=== PATIENT | female | born 1990 | race Caucasian/White ===

== ENCOUNTER 2025-03-29 17:16 | Emergency (ER) | payer OTHER, SELFPAY ==
[2025-03-29 17:17] VITALS: BP 110/81
[2025-03-29 18:01] LABS: HCG, Serum Qualitative Screen Negative
[2025-03-29 18:05] LABS: ALT (SGPT) 12 U/L (0-35); AST (SGOT) 16 U/L (14-36); Albumin 4.7 g/dl (3.5-5.0); Alkaline Phosphatase 37 U/L (38-126); Blood Urea Nitrogen 22 mg/dl (7-17); Calcium 9.4 mg/dl (8.4-10.2); Carbon Dioxide 22 mmol/L (22-30); Chloride 107 mmol/L (98-107); Glucose 114 mg/dl (70-99); Lipase 57 U/L (23-300); Potassium 3.5 mmol/L (3.5-5.1); Sodium 140 mmol/L (135-145); Total Bilirubin 1.5 mg/dl (0.2-1.3); Total Protein 7.5 g/dl (6.3-8.2); eGFR > 60.00
[2025-03-29 18:17] LABS: % Basophils 0.3 % (0-2); % Eosinophils 1.7 % (0-6); % Immature Granulocytes 0.5 % (0-0.5); % Lymphocytes 28.7 % (20.5-51.1); % Monocytes 11.9 % (1.7-9.3); % Neutrophils 56.9 % (42.2-75.2); Absolute Eosinophils 0.1 10^3/uL (0-0.7); Absolute Lymphocytes 2.1 10^3/uL (1.2-3.4); Absolute Monocytes 0.9 10^3/uL (0.1-0.6); Absolute Neutrophils 4.2 10^3/uL (1.4-6.5); Hemoglobin 15.5 g/dL (12.0-16.0); Mean Corp Hgb Conc. 38.8 g/dL (33.0-37.0); Mean Corpuscular Hgb 31.6 pg (27.0-31.0); Mean Corpuscular Volume 81.5 fL (81.0-99.0); Mean Platelet Volume 10.1 fL (7.4-10.4); Nucleated Red Blood Cells % 0.4 %; Platelet Count 311 10^3/uL (130-400); Red Blood Cell Count 4.91 10^6/uL (4.20-5.40); Red Cell Dist. Width 11.8 % (11.5-14.5); White Blood Cell Count 7.5 10^3/uL (4.8-10.8)
[2025-03-29] MEDS: NSS 1000 IV (20:10)
[2025-03-29 20:57] LABS: Troponin I 0.012 ng/ml
--- NOTE | 2025-03-29 20:58 | ED.GENMED ---
History of Present Illness
General
Chief Complaint: Abdominal Symptoms
Source: patient
Time Seen by Provider: 03/29/25 20:08
History of Present Illness
History of Present Illness:
Note:
CHIEF COMPLAINT(S)
Diarrhea, vomiting, and dehydration.
HISTORY OF PRESENT ILLNESS
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 The patient presented with a history of gastrointestinal symptoms starting on a Thursday when she felt generally unwell. On Thursday, she experienced diarrhea, which she initially
attributed to having coffee on an empty stomach. That night, she vomited approximately six times, which is atypical for her. She describes the vomiting episode as depleting and has not experienced such intensity before.
By Thursday, the patient believed it might have been a 24-hour viral illness as she felt slightly better; however, she noted that eating provoked intense diarrhea. The diarrhea was frequent enough to cause rectal bleeding, which was apparent only on
wiping. Concern about the bleeding led her to limit food intake, resulting in dehydration. She experienced nausea, light-headedness, shortness of breath, and profound fatigue, necessitating taking an elevator at school rather than stairs, something
she found unusual considering her relatively good health and active lifestyle.
The patient contacted her primary care physician due to worsening symptoms and concern for persistent high heart rate and dehydration. The physician recommended a stool sample, electrocardiogram (EKG), and a computed tomography (CT) scan of the
abdomen. Currently, the patient reports diffuse abdominal tenderness, more pronounced in the lower region, when pressure is applied.
ADDITIONAL HISTORY OBTAINED FROM SOURCES OTHER THAN THE PATIENT
According to the patients physician, there is a concern for dehydration and possible electrolyte imbalance, leading to a slightly elevated heart rate and an abnormal EKG. The provider also mentioned plans to perform a CT scan.
CHRONIC MEDICAL CONDITIONS SIGNIFICANTLY AFFECTING CARE
The patient has been on Zepbound for a year, which she wonders might contribute to her symptoms.
SOCIAL DETERMINANTS AFFECTING HEALTH
The patient is a mother of two small children and notes the demands of parenthood as affecting her ability to rest and recuperate.
ALLERGIES
The patient reports allergies to pain medications and another unidentified medication starting with 'D.'
PAST SURGICAL HISTORY
The patient has a history of a section during childbirth.
SOCIAL HISTORY
The patient does not smoke cigarettes, use tobacco, consume alcohol, or use substances.
REVIEW OF SYSTEMS
- Gastrointestinal: Diarrhea with blood on wiping, vomiting, abdominal tenderness, nausea.
- General: Fatigue, dehydration, light-headedness.
- Cardiovascular: Shortness of breath, elevated heart rate.
Past History
Past History
ED Past Medical History: None
ED Past Surgical History: Tonsilectomy
Social History
Tobacco: Non-smoker
Alcohol: Occasional
Drug: None
Personal:
Living: with family
Employment: Employed
Review of Systems
Review of Systems
All Other Systems: ROS reviewed and negative except as documented in HPI and ROS
Phy Exam
Physical Exam
Physical Exam:
GENERAL: Alert , in no apparent distress
EYE: clear conjunctiva b/l
HEAD: NCAT
ENT: o/p clr, mmm.
CARDIAC: Tachycardic rate, normal rhythm
LUNGS: Clear breath sounds bilaterally, no acute respiratory distress, no wheezes/rales/rhonchi
ABDOMEN: Abdomen is tender, more pronounced in the lower regions but generally soft without rigidity. normoactive bowel sounds
NEUROLOGICAL: Alert and oriented
SKIN: Warm and dry, skin intact.
MUSCULOSKELETAL: No edema, well perfused.
PSYCH: Normal and appropriate interaction.
Scores
Heart Failure Risk
Heart Failure Risk Score: Not Applicable
Heart Score for Chest Pain Patients
STEMI patient?: Not applicable
Withdrawal Assessment of Alcohol
Withdrawal Assessment Completed?: Not applicable
Course
Orders/Labs/Results
Orders:
Orders
03/29/25 17:21
Electrocardiogram (*1) Urgent
Reason for Study: Vertigo / Dizzy
EKG- Treatment ONCE
Test Result ONCE
03/29/25 17:41
Complete Blood Count/With Diff Urgent
Comprehensive Metabolic Panel Urgent
HCG, Serum Qualitative Screen Urgent
Lipase Urgent
03/29/25 19:38
C difficile Antigen & Toxins Urgent
CHITO Source: Feces/Stool
Specimen Description:
Date Specimen was Collected: 03/29/25
Time Specimen was Collected: 19:36
Stool Culture Urgent
CHITO Source: Feces/Stool
Specimen Description:
Date Specimen was Collected: 03/29/25
Time Specimen was Collected: 19:36
03/29/25 20:08
0.9% Sodium Chloride 1000 ml [Nss] 1,000 ml IV BOLUS
03/29/25 20:26
Troponin I Urgent
03/29/25 20:59
CT Abd/pelvis W Iv Cont Urgent
Comment:
Reason For Exam: pain, diarrhea
Abnormal Lab Results
03/29/25
17:41
MCH 31.6 H pg
(27.0-31.0)
MCHC 38.8 H g/dL
(33.0-37.0)
Absolute Monos (auto) 0.9 H 10^3/uL
(0.1-0.6)
Monocytes % 11.9 H %
(1.7-9.3)
BUN 22 H mg/dl
(7-17)
Creatinine 1.1 H mg/dL
(0.6-1.0)
Glucose 114 H mg/dl
(70-99)
Total Bilirubin 1.5 H mg/dl
(0.2-1.3)
Alkaline Phosphatase 37 L U/L
(38-126)
03/29/25 17:41
03/29/25 17:41
Vital Signs
Initial and Last Documented VS:
Initial Vital Signs
Temp Pulse Resp BP Pulse Ox
98.1 F 118 16 110/81 97
03/29/25 17:17 03/29/25 17:17 03/29/25 17:17 03/29/25 17:17 03/29/25 17:17
Last Documented Vital Signs
Temp Pulse Resp BP Pulse Ox
98.1 F 70 20 105/70 99
03/29/25 17:17 03/29/25 22:10 03/29/25 22:10 03/29/25 22:10 03/29/25 22:10
MDM/Problems Addressed
Differential Diagnosis Includes:
The Differential Diagnosis includes, in no particular order and is not limited to:
1. Viral gastroenteritis
2. Bacterial gastroenteritis
3. Inflammatory bowel disease
4. Diverticulitis
5. Gastritis
6. Peptic ulcer disease
7. Irritable bowel syndrome
8. Colitis
9. Rectal fissure
10. Food poisoning
MDM/Problems Addressed:
1. Administer intravenous fluids to address dehydration.
2. Conduct a CT scan of the abdomen to investigate abdominal pain further.
3. Evaluate cardiac issues given the EKG findings; Likely outpatient cardiac eval
4. Provide symptomatic relief as needed, including pain and nausea management.
*Radiology
Radiology exam reviewed: radiology read reviewed
*Pulse Oximetry
Patient hypoxic: no
*Instructor Painting Interpretation
Rate: tachycardiac
Rhythm: sinus
*Critical Care Note
Total Time (30-74mins, 75-104mins- exclusive of procedures): Not Applicable
Patient Management
Social determinants of health affecting care: Living situation and Strong social support
Escalation/DeEscalation of care consider admission/obs:
SUMMARY OF ENCOUNTER
The patient, a 35-year-old female, presented to the emergency department with symptoms of diarrhea, vomiting, and dehydration. Notably, she developed diarrhea that progressed to rectal bleeding and vomiting episodes that were particularly severe and
draining. She experienced associated symptoms like nausea, light-headedness, and shortness of breath, leading to concerns about dehydration and potential cardiac issues. Diagnostic tests included a CT scan of the abdomen, revealing mild
enterocolitis. Laboratory results, including troponin levels, were within normal limits. While in the emergency department, the patient did not experience further diarrhea.
ASSESSMENT
The assessment indicated mild enterocolitis without further acute symptoms during the ED stay. The patients symptoms improved sufficiently to warrant discharge with outpatient follow-up care.
PLAN
1. Discharge the patient with instructions to follow up with her primary care provider, as well as with gastroenterology and cardiology.
2. Stool sample to be analyzed; the patient will be contacted with results, particularly if they indicate a need for antibiotics.
3. Expedite outpatient cardiology follow-up through the chest pain hotline.
4. Educate the patient on return precautions to the emergency department.
PATIENT EDUCATION AND COUNSELING
The patient was counseled on return precautions to the emergency department and is aware of symptoms that would warrant return.
MEDICAL DECISION MAKING
Number and Complexity of Problems Addressed: The patients acute gastrointestinal symptoms and the concern of dehydration highlighted complex management needs, particularly under the differential diagnosis considerations.
Risk: The risk factors included potential electrolyte imbalance and dehydration. The decision was made to withhold antibiotics pending stool test results.
To the best of my knowledge and according to current medical standards, the patient was provided with care that meets or exceeds the standard of care for their condition.
ED Attending Note
-
Portions of this chart may have been created with voice recognition software.� Occasional wrong word or��sound alike� substitutions may have occurred due to the inherent limitations of voice recognition software.
Discharge Plan
Departure
Patient Disposition: Home (Routine Discharge)
Date of Disposition: 03/29/25
Time of Disposition: 21:46
Patient with high blood pressure during this ER visit?: No
Discharge Problem:
Abdominal pain, Diarrhea, Abnormal ECG
Instructions: Diarrhea in adults - ED discharge instructions, Chest Pain CBC Follow Up
Prescriptions:
No Action
PNV cmb#95-ferrous fumarate-FA [] 1 EACH tablet
1 ea PO DAILY
docusate sodium [Colace] 100 MG capsule
100 mg PO DAILY
ibuprofen 600 MG tablet
600 mg PO Q6HPRN PRN (Reason: moderate pain/cramps) 0RF
Referrals:
Ritesh Isaacs MD [Active, Gastroenterology]
Referral Note: GI - Please call for appointment
Jena Ordaz PA-C [Family Provider, Family Practice]
Interventions
Interventions:
*General Assessment Last Done: 03/29/25 19:07
*ED- Fall Risk Assessment Last Done: 03/29/25 19:07
*Nursing Disposition Last Done: 03/29/25 22:10
RN-Ffccju-Qycjcwelwl Assessment Last Done: 03/29/25 19:07
Discharge Date and Time
Discharge Date/Time: 03/29/25 22:11
Print Language: ESTONIAN
[2025-03-29 22:10] VITALS: BP 105/70
== END 2025-03-29 22:11 | disposition home or self-care (01) ==
LOC: EMR 17:16
PROVIDERS: Emergency Medicine; Physician Assistant Medical; EMERGENCY PHYSICIAN Emergency Medicine; FAMILY PHYSICIAN Physician Assistant Medical
DX: K52.9 Noninfective gastroenteritis and colitis, unspecified (principal); R10.9 Unspecified abdominal pain; R94.31 Abnormal electrocardiogram [ECG] [EKG]
CPT/HCPCS: 96360; 99284; 74177; 80053; 83690; 84484; 84703; 85025; 87045; 87046; 87324; 87427; 87449; 93005; Q9967

== ENCOUNTER → 2025-04-20 09:08 | Outpatient (REF) | payer OTHER, SELFPAY | LOC: RCS 09:08 | PROVIDERS: ATTENDING PHYSICIAN Internal Medicine Cardiovascular Disease; FAMILY PHYSICIAN Physician Assistant Medical | DX: I44.7 Left bundle-branch block, unspecified (principal); R94.31 Abnormal electrocardiogram [ECG] [EKG]; R06.09 Other forms of dyspnea; R01.1 Cardiac murmur, unspecified | CPT/HCPCS: 93306 ==

== ENCOUNTER → 2025-05-06 08:06 | Outpatient (REF) | payer OTHER, SELFPAY | LOC: MRI 3T 08:06 | PROVIDERS: ATTENDING PHYSICIAN Physician Assistant Medical | DX: M75.32 Calcific tendinitis of left shoulder (principal); M25.512 Pain in left shoulder; M25.612 Stiffness of left shoulder, not elsewhere classified; R29.898 Other symptoms and signs involving the musculoskeletal system | CPT/HCPCS: 73221 ==